=== PATIENT | female | born 1945 | race Caucasian/White ===

== ENCOUNTER → 2019-10-05 10:30 | Outpatient (BNVA) | payer MEDICARE, OTHER, SELFPAY | PROVIDERS: Family Provider Nurse Practitioner Family; PCP Nurse Practitioner Family; Visit Provider Nurse Practitioner Family | DX: E11.9 Type 2 diabetes mellitus without complications (principal); I10 Essential (primary) hypertension; E78.5 Hyperlipidemia, unspecified; Z91.19 Patient's noncompliance with other medical treatment and regimen | CPT/HCPCS: 80053; 80061; 82044; 83036; 85025 ==

== ENCOUNTER 2020-01-18 13:21 | Emergency (ER) | payer MEDICARE, OTHER, SELFPAY ==
--- NOTE | 2020-01-18 13:25 | USCV_ITS ---
Olga Aguilar Age: 74 Gender: F : 1945 Exam Date: 01/18/2020 13:52 Ordering Phys: Kristi Smith MD Technologist: Mariam Wade [place] [facility] [place]: [place] HISTORY: Lower extremity pain. PROCEDURES: Venous duplex imaging was performed in only the right lower extremity. The following venous structures were evaluated: common femoral vein, profunda vein, proximal portion of the greater saphenous vein, superficial femoral vein, and the popliteal vein. In addition, the posterior tibial and peroneal trunk were evaluated. Serial compression, augmentation maneuvers, and spectral Doppler flow evaluation were performed. FINDINGS: Normal 2-D Doppler and augmentation and compressibility throughout the lower extremity venous structures. Additional imaging through the proximal calf veins also reveals no thrombus. Limited evaluation of the greater saphenous vein is patent with no thrombus. CONCLUSIONS No DVT right lower extremity. Dr. Dana Zacarias DO (Electronically Signed) Final Date: 18 January 2020 14:26 S
[2020-01-18 13:43] LABS: Basophils % 0.5 %; Eosinophils # 0.1 10^3/uL (0.0-0.8); Eosinophils % 0.9 %; Hematocrit 36.8 % (37.0-47.0); Hemoglobin 11.9 g/dL (11.5-15.3); Lymphocytes # 1.2 10^3/uL (0.8-4.8); Lymphocytes % 15.5 %; Mean Corpuscular HGB Conc 32.3 g/dL (30.0-36.0); Mean Corpuscular Volume 86.6 fL (81-99); Mean Platelet Volume 11.6 fL (7.4-10.4); Monocytes # 0.6 10^3/uL (0.2-0.9); Monocytes % 7.6 %; Neutrophils # 5.84 10^3/uL (1.8-7.7); Neutrophils % 74.9 %; Nucleated Red Blood Cells % 0 %; Platelet Count 135 10^3/cmm (130-400); Red Blood Count 4.25 10^6/uL (4.1-5.3); Red Cell Distribution Width 12.5 % (12.1-15.1); White Blood Count 7.8 10^3/uL (4.0-10.0)
[2020-01-18 14:18] VITALS: BP 201/83; PULSE 72; RESP 14; TEMP 36.9; O2SAT 100; BMI 37.8
--- NOTE | 2020-01-18 14:51 | ED_ITS ---
HPI - General Adult General: Chief complaint: General Medical Stated complaint: Excessive Swelling in Right Leg Time Seen by Provider: 01/18/20 14:26 Source: patient Mode of arrival: ambulatory Limitations: no limitations History of Present Illness: HPI narrative: 74-year-old female who has chronic swelling to her lower legs. She states she has had edema to bilateral legs for months. Patient supposed to be on HCTZ at home along with other meds and has not taken them for 2 to 3 weeks that she is not fill the prescription. Patient was seen her PCP who sent her here for concerns of cellulitis or DVT. She denies any pain. She denies any fever. Denies any worsening improving factors Associated symptoms: Deny chest pain, dyspnea, headache(s), nausea, rash or vomiting Review of Systems Const: Denies: fever(s), chills, body aches or change in appetite Eyes: Denies: blurry vision or eye discomfort ENMT: Denies: throat pain or dental pain Card: Denies: chest pain Resp: Denies: dyspnea GI: Denies: abdominal pain, nausea, vomiting or diarrhea : Denies: dysuria Musc: Reports: extremity swelling Skin/Breast: Denies: rash Neuro: Denies: headache(s) Psych: Denies: depression Bimal/Lymph: Denies: easy bruising All/Imm: Denies: urticaria PFSH ED PFSH: Medical History Controlled diabetes mellitus without complication, without long-term current use of insulin Essential (primary) hypertension Hyperlipidemia, unspecified Family History Mother Diabetes Heart disease Cancer Father Cancer Brother Cancer Social History Smoking and tobacco status: never smoked Alcohol intake: never Lives independently: Yes Household members: family and other Marital status: / service: No Current occupational status: retired History of recent travel: No Current gender identity: Female Special sofía needs: No Agree to transfusion: Yes Physical Exam Const: COMMON NORMALS: no acute distress, patient oriented x3 and healthy appearing HENMT: COMMON NORMALS: normocephalic and atraumatic HEAD & SCALP: normocephalic and atraumatic Eye: COMMON NORMALS: Equal, round and reactive pupils present and EOMs intact bilaterally PUPIL: Yes Equal, round and reactive pupils present Neck/C-Spine: COMMON NORMALS: full ROM and supple Chest: COMMONS NORMALS: normal inspection of the chest and normal palpation of entire chest wall Resp: COMMON NORMALS: normal respiratory effort, No retractions, No use of accessory muscles and clear to auscultation bilaterally AUSCULTATION: clear to auscultation bilaterally Cardio: COMMON NORMALS: regular rate, regular rhythm and No murmurs present (Cardio) RATE: regular rate RHYTHM: regular rhythm GI: COMMON NORMALS: Normal to inspection, nondistended, normoactive bowel sounds present, Soft to palpation, non-tender and no masses PALPATION: Yes Soft to palpation Extremity: COMMON NORMALS: full ROM NARRATIVE EXTREMITY EXAM: Large amount of edema bilaterally. Right more swollen than left with slight erythema to the right leg. Distal pulses intact. Neuro: COMMON NORMALS: patient oriented x3, moves all extremities and no focal motor deficits Psych: COMMON NORMALS: mental status grossly normal, Normal thought process present and cooperative THOUGHT PROCESS: Normal thought process present Skin: COMMON NORMALS: no rashes or lesions noted and no wounds GENERAL SKIN EXAM: no rashes or lesions noted Course Vital Signs: Vital signs: Vital Signs Temperature 98.5 F 01/18/20 14:18 Pulse Rate 72 01/18/20 14:18 Respiratory Rate 14 01/18/20 14:18 Blood Pressure 201/83 01/18/20 14:18 Pulse Oximetry 100 01/18/20 14:18 MDM - General Adult MDM Narrative: Medical decision making narrative: Criss presents with bilateral lower leg edema that is chronic in nature. Likely worsening as she is not taking her diuretic for over 2 weeks. She is very poorly compliant. Informed her is very important she takes her meds as prescribed. Patient is mild erythema likely mild cellulitis will start on Keflex. Patient given IV Lasix here. Ultrasound here showed no DVT. Patient is stable for discharge and is to return if worsening. She understands and agrees to plan. Lab Data: Labs: Lab Results 01/18/20 01/18/20 Range/Units 13:34 13:34 WBC 7.8 (4.0-10.0) 10^3/ uL RBC 4.25 (4.1-5.3) 10^6/u L Hgb 11.9 (11.5-15.3) g/dL Hct 36.8 L (37.0-47.0) % MCV 86.6 (81-99) fL MCH 28.0 (28.0-34.0) pg MCHC 32.3 (30.0-36.0) g/dL RDW 12.5 (12.1-15.1) % Plt Count 135 (130-400) 10^3/c mm MPV 11.6 H (7.4-10.4) fL Neut % (Auto) 74.9 % Lymph % (Auto) 15.5 % [place] % (Auto) 7.6 % Eos % (Auto) 0.9 % Baso % (Auto) 0.5 % Neut # (Auto) 5.84 (1.8-7.7) 10^3/u L Lymph # (Auto) 1.2 (0.8-4.8) 10^3/u L [place] # (Auto) 0.6 (0.2-0.9) 10^3/u L Eos # (Auto) 0.1 (0.0-0.8) 10^3/u L Baso # (Auto) 0.0 (0.0-0.1) 10^3/u L Nucleated RBC % (a uto) 0 % Nucleated RBCs # 0.0 /100WBC Sodium 134 L (136-145) mmol/L Potassium 3.6 (3.5-5.1) mmol/L Chloride 97 L (98-107) mmol/L Carbon Dioxide 26 (22-29) mmol/L Anion Gap 14.6 (5-19) BUN 13 (8-23) mg/dL Creatinine 0.7 (0.5-0.9) mg/dL GFR Calculation Not Reportable Glucose 233 H (65-115) mg/dL Calculated Osmolal ity 286 (285-295) mOsm/k g Calcium 9.2 (8.5-10.5) mg/dL Total Bilirubin 0.7 (0.15-1.2) mg/dL AST 32 (0-32) U/L ALT 20 (0-33) U/L Alkaline Phosphata se 48 (35-105) IU/L NT-Pro-B Natriuret Pep 966 H (0-125) pg/mL Total Protein 7.4 (6.6-8.7) g/dL Albumin 3.5 (3.5-5.2) g/dL Globulin 3.9 (1.3-4.6) g/dL Discharge Plan Discharge Patient Disposition: Home Clinical Impression: Cellulitis of right lower extremity, Lower extremity edema Condition: Stable Prescriptions: New Keflex 500 mg capsule 500 mg PO Q6H 7 Days Qty: 28 RF: 0 No Action metformin 500 mg tablet 500 mg PO BID Qty: 180 RF: 0 losartan-hydrochlorothiazide 100-25 mg tablet 1 tab PO DAILY Qty: 90 RF: 0 aspirin 325 mg Tablet 325 mg PO PRN RF: 0 Aleve 220 mg Tablet 440 mg PO PRN RF: 0 Discharge Orders: Discharge Order (Routine); Ordered 01/18/20 Ordered By: Kristi Smith Referrals: Kandy Zafar FNP [Primary Care Provider] - 1-3 days Discharge Diet: Advance as tolerated Discharge Activity: Resume usual activity Patient Instructions: Cellulitis (ED), Leg Edema (ED) Coding Level of Care Code ED Stores Assistant for Chg Fwd Exam Comprehensive
[2020-01-18 14:58] LABS: Alanine Aminotransferase 20 U/L (0-33); Albumin Level 3.5 g/dL (3.5-5.2); Alkaline Phosphatase 48 IU/L (35-105); Anion Gap 14.6 (5-19); Aspartate Amino Transferase 32 U/L (0-32); Blood Urea Nitrogen 13 mg/dL (8-23); Calcium 9.2 mg/dL (8.5-10.5); Carbon Dioxide 26 mmol/L (22-29); Chloride 97 mmol/L (98-107); Creatinine Clr Calc Pharmacy 72.9886; Globulin 3.9 g/dL (1.3-4.6); Glucose 233 mg/dL (65-115); NT Pro B Type Natriuretic Pept 966 pg/mL (0-125); Osmolality Calculated 286 mOsm/kg (285-295); Potassium 3.6 mmol/L (3.5-5.1); Sodium 134 mmol/L (136-145); Total Bilirubin 0.7 mg/dL (0.15-1.2); Total Protein 7.4 g/dL (6.6-8.7)
[2020-01-18] MEDS: FUROsemide 10 mg/mL SDV 10mL 60 MG IVP (14:59)
[2020-01-18 15:30] VITALS: BP 182/86; PULSE 73; RESP 16; O2SAT 100
--- NOTE | 2020-01-18 15:30 | PC.NURSE ---
PT BILATERAL LOWER EXT WRAPPED IN ANDRY WRAP PER DR. ROJAS'S VO.
[2020-01-18 15:35] VITALS: BP 182/86; PULSE 73; RESP 16; O2SAT 100
== END 2020-01-18 15:45 | disposition home or self-care (01) ==
PROVIDERS: Emergency Provider Emergency Medicine; PCP Nurse Practitioner Family
DX: L03.115 Cellulitis of right lower limb (principal); R60.0 Localized edema; Z79.82 Long term (current) use of aspirin; Z79.84 Long term (current) use of oral hypoglycemic drugs; E11.9 Type 2 diabetes mellitus without complications; I10 Essential (primary) hypertension; E78.5 Hyperlipidemia, unspecified
CPT/HCPCS: 12345; 36415; 80053; 83880; 85025; 93971; 96374; 96375; 99283; J1940